=== PATIENT | male | born 1940 | race Hispanic/Latino ===

== ENCOUNTER 2018-01-27 14:18 | Emergency (ER) | payer MEDICARE, OTHER ==
[2018-01-27 15:01] VITALS: BP 120/57
--- NOTE | 2018-01-27 17:11 | Emergency Department Report ---
Blank Doc - Documentation Documentation: 77-year-old male status post fall from ladder earlier this morning. Patient states he fell approximately 12 feet. Patient landed on his back. Denies LOC, denies headache, denies neck pain. Reports pain to lower back and bilateral ankles. Patient ambulatory and drove himself to ED. Took Advil at home. Vital signs normal. No deformities noted on exam. No point vertebral tenderness to C, T or L-spine. Abdomen soft, nontender as well. Patient has mild tenderness to bilateral ankles no obvious swelling noted. Will check x- rays of lumbar spine and right and left ankles.
--- NOTE | 2018-01-27 17:26 | Emergency Department Report ---
ED Fall HPI - General Chief Complaint: Fall Stated Complaint: LEGS/FELL OFF LADDER Time Seen by Provider: 01/27/18 17:07 Source: patient, family Mode of arrival: Ambulatory - History of Present Illness Initial Comments: This is a 77-year-old male who fell today 12th foot off a ladder and landed on the grass in his back. Patient initially was seen by Dr. Webber was screened patient. Patient completed a lower back pain and pain is both his hips and is right lower leg. Patient is ambulatory. He drove himself to the hospital. He said he is having pain achy generalized tenderness to 10. Denies any head injury or loss of consciousness. Reported neck pain to the side of his neck. He has a history of high blood pressure. No medication taken prior to coming to the hospital. He said this happened this morning in. Denies any chest pain or shortness of breath. Denies any abdominal pain. Denies any cuts or bruises and his tetanus shot is up-to-date MD Complaint: fall -: This morning Fall From: from height (distance) When Fall Occurred: 1-3 hours TEST [employer]PER[employer] Fall Witnessed: yes, by bystander Place Fall Occurred: home Loss of Consciousness: none Prolonged Down Time?: no Symptoms Prior to Fall: none Location: neck, back Location - Extremities: Left: Ankle, Right: Leg, Ankle Severity: severe Severity scale (0 -10): 10 Quality: aching Context: other (fell off ladder) Associated Symptoms: denies: headache, neck pain, numbness, weakness, chest paint, shortness of breath, abdominal pain, hematuria, unable to walk, lightheaded, vertigo, confusion - Related Data Previous Rx's Medication Instructions Recorded Last Taken Type Ibuprofen [Motrin] 600 mg PO Q8H PRN #12 tablet 01/27/18 Unknown Rx traMADol [Ultram 50 MG tab] 50 mg PO Q6HR PRN #20 tablet 01/27/18 Unknown Rx Allergies Allergy/AdvReac Type Severity Reaction Status Date / Time No Known Allergies Allergy Unverified 01/27/18 21:19 ED Review of Systems ROS: Stated complaint: LEGS/FELL OFF LADDER Other details as noted in HPI Constitutional: denies: chills, fever Eyes: denies: eye pain, vision change ENT: denies: ear pain, throat pain, congestion Respiratory: denies: cough, shortness of breath, SOB with exertion, SOB at rest , stridor, wheezing Cardiovascular: denies: chest pain, palpitations, dyspnea on exertion, edema, syncope, paroxysmal nocturnal dyspnea Gastrointestinal: denies: abdominal pain, nausea, vomiting, diarrhea, hematemesis, hematochezia Genitourinary: denies: urgency, dysuria Musculoskeletal: back pain, joint swelling, arthralgia. denies: myalgia Skin: denies: rash, lesions Neurological: denies: headache, weakness, numbness, paresthesias, confusion, abnormal gait, vertigo Psychiatric: denies: anxiety, depression Hematological/Lymphatic: denies: easy bleeding, easy bruising ED Past Medical Hx - Past Medical History Previous Medical History?: Yes Hx Hypertension: Yes - Surgical History Past Surgical History?: Yes Additional Surgical History: cyst removal from pancrease, chest hernia, inguinal hernia - Family History Family history: hypertension - Social History Smoking Status: Never Smoker Substance Use Type: Alcohol - Medications Home Medications: Home Medications Medication Instructions Recorded Confirmed Last Taken Type Ibuprofen [Motrin] 600 mg PO Q8H PRN #12 tablet 01/27/18 Unknown Rx traMADol [Ultram 50 MG tab] 50 mg PO Q6HR PRN #20 tablet 01/27/18 Unknown Rx ED Physical Exam - General Limitations: No Limitations General appearance: alert, in no apparent distress - Head Head exam: Present: atraumatic, normocephalic, normal inspection, other (normal exam) - Eye Eye exam: Present: normal appearance, PERRL, EOMI. Absent: nystagmus, periorbital swelling, periorbital tenderness Pupils: Present: normal accommodation - ENT ENT exam: Present: normal exam, normal orophraynx, mucous membranes moist, TM's normal bilaterally, normal external ear exam - Neck Neck exam: Present: normal inspection, full ROM (reports pain with range of motion to sides of neck.), other (no C-spine tenderness). Absent: tenderness, lymphadenopathy - Respiratory Respiratory exam: Present: normal lung sounds bilaterally, chest wall tenderness (he reports pain on both sides of her ribs mid axillary line without any swelling or ecchymosis. Area is tender to palpate). Absent: respiratory distress, accessory muscle use, decreased breath sounds, prolonged expiratory - Cardiovascular Cardiovascular Exam: Present: regular rate, normal rhythm, normal heart sounds. Absent: systolic murmur, diastolic murmur - GI/Abdominal GI/Abdominal exam: Present: soft, normal bowel sounds. Absent: distended, tenderness, guarding, rebound, rigid, organomegaly, mass - Extremities Exam Extremities exam: Present: normal inspection, full ROM, tenderness (right leg tender to palpate with mild swelling), normal capillary refill, other (No cce. + 2 pulses in all extremities, no neurovascular compromise except for right leg with mild swollen and tender to palpate. He also has tenderness to palpate to both pelvis). Absent: pedal edema, joint swelling, calf tenderness - Back Exam Back exam: Present: normal inspection, full ROM, paraspinal tenderness (lumbar) , vertebral tenderness (lumbar), other (ambulates without any difficulties). Absent: tenderness, CVA tenderness (R), CVA tenderness (L), muscle spasm, rash noted - Expanded Back Exam Expanded Back exam: Absent: saddle anesthesia Back exam: Negative Straight Leg Raising: Left, Right - Neurological Exam Neurological exam: Present: alert, oriented X3, normal gait. Absent: motor sensory deficit, reflexes normal - Expanded Neurological Exam Expanded Neurological exam: Absent: innattentive, memory loss-remote event, memory loss- recent event, ataxia, receptive aphasia, expressive aphasia, total aphasia, tremor, protecting the airway Patient oriented to: Present: person, place, time Speech: Present: fluid speech Cranial nerves: EOM's Intact: Normal, Gag Reflex: Normal, Tongue Deviation: Normal, Nystagmus: Normal, Facial Sensation: Normal Upper motor neuron: Pronator Drift: Normal, Sensory Extinction: Normal Sensory exam: Upper Extremity Light Touch: Normal, Upper Extremity Temperature: Normal, UE 2 Point Discrimination: Normal, Lower Extremity Light Touch: Normal, Lower Extremity Temperature: Normal, LE 2 Point Discrimination: Normal Motor strength exam: RUE: 5, LUE: 5, RLE: 5, LLE: 5 Best Eye Response ([place]): (4) open spontaneously Best Motor Response ([place]): (6) obeys commands Best Verbal Response ([place]): (5) oriented Kim Total: 15 - Psychiatric Psychiatric exam: Present: normal affect, normal mood - Skin Skin exam: Present: warm, dry, intact, normal color. Absent: rash ED Course Vital Signs 10/07/18 10/07/18 14:54 22:48 Temperature 98.1 F Pulse Rate 88 77 Respiratory 16 17 Rate Blood Pressure 120/57 O2 Sat by Pulse 99 99 Oximetry - Reevaluation(s) Reevaluation #1: 01/27/18 20:52 Patient received Motrin 800 mg by mouth in the emergency room for pain. Pain is controlled and awaiting in x-ray reports. Reevaluation #2: 01/27/18 22:20 Patient's stable and in no acute distress. ED Medical Decision Making - Radiology Data Radiology results: report reviewed X-ray of lumbar spine, thoracic spine and C-spine, bilateral rib, pelvis, bilateral ankle and right tib-fib dictated by radiologist and report reviewed by myself. All x-rays were negative findings. Patient had traumatic fall from greater than 10 feet and he is at 77 years old so he is at great risk for fracture due to decreased bone density - Medical Decision Making This is a 77-year-old male who fell 12 feet off a ladder today. He is here complaining of back pain and pain to pelvis area with lower extremity pain. Patient was screened by Dr. Webber and orders place. Diagnostics: Patient had multiple x-ray to include x-ray of C-spine, T-spine, L- spine, pelvis, bilateral ribs, bilateral ankle and right tib-fib which were all negative findings. 1: Musculoskeletal pain secondary to fall-better Motrin 600 mg by mouth and patient will be discharged home on Ultram and Motrin. Upper and lower back pain-better after pain medication Neck pain-better after pain medication. Arthralgia multiple sites-after pain medication. Pt educated on fall prevention and all his x-ray results. He voice understanding. He received Motrin 600 mg emergency room which helped his pain. Patient able to ambulate without any difficulties and his neurological status is intact. Patient vital signs stable and afebrile and discharged home in stable condition with a prescription for Motrin and Ultram and to follow up with his primary care and orthopedic and he voiced understanding. - Differential Diagnosis FX,vs subluxation, sprain, strain, musculoskeletal pain Critical care attestation.: If time is entered above; I have spent that time in minutes in the direct care of this critically ill patient, excluding procedure time. ED Disposition Clinical Impression: Arthralgia of multiple sites Fall from ladder Qualifiers: Encounter type: initial encounter Qualified Code(s): W11.XXXA - Fall on and from ladder, initial encounter Back pain Qualifiers: Back pain location: thoracic back pain Chronicity: acute Back pain laterality: bilateral Qualified Code(s): M54.6 - Pain in thoracic spine Disposition: DC-01 TO HOME OR SELFCARE Is pt being admited?: No Does the pt Need Aspirin: No Condition: Stable Instructions: Fall Prevention for Older Adults (ED), Arthralgia (ED), Back Pain (ED) Additional Instructions: Please follow up with orthopedic doctor in 2 days Primary care physician tomorrow Condition worsens return to the emergency room. Take Motrin for mild pain and Ultram for moderate to severe pain Prescriptions: Ibuprofen [Motrin] 600 mg PO Q8H PRN #12 tablet PRN Reason: Pain traMADol [Ultram 50 MG tab] 50 mg PO Q6HR PRN #20 tablet PRN Reason: Pain Referrals: your, primary care physician [Other] - 01/28/18 NELA CHAVEZ MD [Staff Physician] - 01/28/18
[2018-01-27] MEDS ORDERED: MOTRIN PO ONE (18:52)
--- NOTE | 2018-01-27 19:08 | XRay Report ---
FINAL REPORT PROCEDURE: XR ANKLE BILAT 3+V TECHNIQUE: Bilateral ankles, three views HISTORY: fall COMPARISON: No prior studies are available for comparison. FINDINGS: In the right ankle, there is medial and lateral soft tissue swelling. No acute fracture or dislocation is seen bilaterally. The ankle mortise and talar dome are intact bilaterally. No focal osseous lesions are seen bilaterally IMPRESSION: No acute fracture or dislocation is seen bilaterally
--- NOTE | 2018-01-27 19:09 | XRay Report ---
FINAL REPORT PROCEDURE: XR SPINE LUMBOSACRAL 2-3V TECHNIQUE: Lumbosacral spine, three views HISTORY: fall and pain COMPARISON: No prior studies are available for comparison. FINDINGS: No scoliosis. The vertebral body heights and alignment are maintained. 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 Aortic calcification is noted. The disc spaces are preserved. IMPRESSION: No acute fracture or subluxation is identified
--- NOTE | 2018-01-27 21:19 | XRay Report ---
FINAL REPORT PROCEDURE: XR SPINE THORACIC 2V TECHNIQUE: Thoracic spine radiographs including AP, lateral, and Swimmer's views. CPT 66031 HISTORY: generalized pain after falling 12 foot off a ladde COMPARISON: No prior studies are available for comparison. FINDINGS: There are mild multilevel degenerative disc changes. There are no fractures or malalignments. The soft tissues are unremarkable. IMPRESSION: There is no acute bony or soft tissue abnormality..
--- NOTE | 2018-01-27 21:20 | XRay Report ---
FINAL REPORT PROCEDURE: XR SPINE CERVICAL 2-3V TECHNIQUE: Cervical spine complete, including AP, lateral, open-mouth odontoid, oblique and flexion and extension studies. CPT 27643 HISTORY: fel1 12 foot off a ladder generalized pain back COMPARISON: No prior studies are available for comparison. FINDINGS: Prevertebral soft tissues: Normal . Alignment in neutral position: Normal . Vertebral body movement with flexion and extension: Physiologic . Vertebral body heights/Disk spaces: Normal . Fracture(s): None . Neural foramina: Normal . Facets: Normal . Bone mineralization: Normal . IMPRESSION: Normal Examination
--- NOTE | 2018-01-27 21:23 | XRay Report ---
FINAL REPORT PROCEDURE: XR TIBIA FIBULA 2V RT TECHNIQUE: RIGHT tibia and fibula radiographs, AP and lateral views. CPT 36868 HISTORY: pain,pelvis after falling 12 foot ladder COMPARISON: No prior studies are available for comparison. FINDINGS: Fracture (s) and/or Dislocation(s): None . Joint space(s): Normal . Soft tissues: Normal . Bone mineralization: Normal . Foreign bodies: None . IMPRESSION: Normal Examination.
--- NOTE | 2018-01-27 21:28 | XRay Report ---
FINAL REPORT PROCEDURE: XR RIBS BILAT 3V TECHNIQUE: Bilateral rib radiographs, minimum of 4 views, including PA projection. CPT 14922 HISTORY: pain after falling off ladder. Bilateral rib, Chest pain 786.50 COMPARISON: No prior studies are available for comparison. FINDINGS: Heart: Normal . Mediastinum/Vessels: Normal . Lungs: The lungs are expanded. There is no infiltrate or contusion. There is a tiny calcified granuloma in the right upper lung.. Pleural space: Normal . Pneumothorax: None . Bony thorax/ribs: No acute or displaced rib fractures. IMPRESSION: There are no visible rib fractures. There is no pulmonary contusion, effusion or pneumothorax.
== END 2018-01-27 22:45 | disposition home or self-care (01) ==
LOC: ED 14:18
DX: M54.6 Pain in thoracic spine (principal); I10 Essential (primary) hypertension; M25.551 Pain in right hip; M25.552 Pain in left hip; M54.2 Cervicalgia; M79.661 Pain in right lower leg; W11.XXXA Fall on and from ladder, initial encounter; Y93.89 Activity, other specified; Y92.89 Other specified places as the place of occurrence of the external cause; Y99.8 Other external cause status
CPT/HCPCS: 71110; 72040; 72070; 72100; 99283